=== PATIENT | female | born 1960 | race Caucasian/White ===

== ENCOUNTER 2024-09-22 19:47 | Emergency (ER) | payer OTHER ==
[~2024-09-22] VITALS: Ht 165.1 cm; Wt 59.0 kg
[2024-09-22] MEDS ORDERED: OXYMETAZOLINE HCL NASAL SPRAY 30 ML BOTTLE NS ONE (19:52)
[2024-09-22] MEDS: OXYMETAZOLINE HCL NASAL SPRAY 30 ML BOTTLE NS ONE (20:01)
[2024-09-22] MEDS: IV NS 0.9% 1,000 ML BAG IV ONE (20:16)
[2024-09-22 20:20] LABS: BASOPHILS % (AUTO) 0.7 % (0.0-2.0); EOSINOPHILS # (AUTO) 0.2 K/uL (0.0-0.7); HEMATOCRIT 39 % (33-45); HEMOGLOBIN 13.2 g/dL (11.5-14.8); LYMPHOCYTES # (AUTO) 1.3 K/uL (0.8-4.8); LYMPHOCYTES % (AUTO) 29.1 % (20.0-44.0); MEAN CORPUSCULAR HEMOGLOBIN 34 PG (26.0-33.0); MEAN CORPUSCULAR HGB CONC 34 g/dl (31.0-36.0); MEAN CORPUSCULAR VOLUME 99 fL (82-100); MONOCYTES # (AUTO) 0.4 K/uL (0.1-1.30); MONOCYTES % (AUTO) 9.2 % (2.0-12.0); NEUTROPHILS # (AUTO) 2.5 K/uL (1.8-8.9); PLATELET COUNT (AUTO) 315 K/uL (150-450); RED BLOOD CELL COUNT(AUTO) 3.93 MIL/uL (4.0-5.2); RED CELL DISTRIBUTION WIDTH 12.8 % (11.5-15.0); WHITE BLOOD COUNT (AUTO) 4.5 K/uL (4.3-11.0)
[2024-09-22 20:30] LABS: CALCIUM, SERUM 9.2 mg/dL (8.5-10.1); CREATININE 0.9 mg/dL (0.6-1.3); POTASSIUM 4.4 mmol/L (3.5-5.1)
[2024-09-22 21:32] VITALS: BP 115/70; TEMP 98.5; O2SAT 99
== END 2024-09-22 21:33 | disposition home or self-care (01) ==
LOC: ER 19:52
DX: R04.0 Epistaxis (principal); G20.A1 Parkinson's disease without dyskinesia, without mention of fluctuations; N30.10 Interstitial cystitis (chronic) without hematuria; Z88.7 Allergy status to serum and vaccine
CPT/HCPCS: 99284; 96360; 30901; 85025; 80048; 36415; J7030

== ENCOUNTER 2024-09-24 13:24 | Emergency (ER) | payer OTHER ==
[~2024-09-24] VITALS: Ht 162.6 cm; Wt 52.2 kg
[2024-09-24 13:36] VITALS: BP 95/55; TEMP 98.1
[2024-09-24 14:39] VITALS: O2SAT 98
== END 2024-09-24 14:40 | disposition home or self-care (01) ==
LOC: ER 13:30
DX: Z48.00 Encounter for change or removal of nonsurgical wound dressing (principal); N30.10 Interstitial cystitis (chronic) without hematuria; Z88.7 Allergy status to serum and vaccine